=== PATIENT | female | born 1960 | race Caucasian/White ===

== ENCOUNTER 2017-12-22 12:45 | Observation (INO) | payer SELFPAY ==
--- NOTE | 2017-12-22 15:44 | RAD ---
PORTABLE CHEST 1 VIEW: DATE: 12/22/17. TIME: 3:34 p.m. HISTORY: Cough, chest wall pain. FINDINGS: The heart size is normal. The lungs are expanded without confluent areas of consolidation, pneumotho races, or pleural effusions. IMPRESSION: No radiographic evidence of acute cardiopulmonary process. POS: [facility]
[2017-12-22] MEDS ORDERED: Ketorolac Tromethamine 30 MG/ML VIAL ONE (16:05)
[2017-12-22] MEDS ORDERED: Nitroglycerin 2% Ointment 1 INCH/1 GM Packet ONE (16:05)
[2017-12-22] MEDS ORDERED: ISOVUE-370 76%-LOCM 1 ML ONE (16:39)
[2017-12-22 17:20] LABS: CKMB 0.3 ng/mL (0-6.6); Troponin I Less than 0.010 ng/mL (< 0.028)
[2017-12-22 17:28] LABS: #Lymphocytes 0.9 thou/uL (1.20-3.40); #Monocytes 0.9 thou/uL (0.11-0.59); #Neutrophils 4.6 thou/uL (1.40-6.50); %Basophils 0.6 % (0.0-1.0); %Eosinophils 0.3 % (0.0-10.0); %Lymphocytes 13.5 % (21.0-51.0); %Monocytes 13.7 % (0.0-10.0); %Neutrophils 71.9 % (42.0-75.0); Hemoglobin 13.3 g/dL (12.0-16.0); Mean Corpuscular HGB CONC 32.9 g/dL (32.0-36.0); Mean Corpuscular Volume 91.4 fl (81.0-99.0); Mean Platelet Volume 7.5 fL (7.4-10.4); Platelet Count 263 thou/uL (130-400); RBC Distribution Width 11.9 % (11.5-14.5); Red Blood Cell (RBC) Count 4.43 mill/uL (4.20-5.40); White Blood Cell (WBC) Count 6.4 thou/uL (4.8-10.8)
[2017-12-22 17:43] LABS: ALT (SGPT) 8 U/L (8-55); AST (SGOT) 16 U/L (5-34); Albumin 3.9 g/dL (3.5-5.0); Alkaline Phosphatase 72 U/L (40-150); Anion Gap 15 mmol/L (10-20); BUN (Urea Nitrogen) 16 mg/dL (9.8-20.1); Bilirubin, Total 0.7 mg/dL (0.2-1.2); Calc. Creatinine Clearance 0 mL/min (70-130); Calcium 9.1 mg/dL (7.8-10.44); Carbon Dioxide 23 mmol/L (22-29); Chloride 106 mmol/L (98-107); Estimated GFR-MDRD 73; Globulin 2.4 g/dL (2.4-3.5); Glucose 79 mg/dL (70-105); Potassium 3.9 mmol/L (3.5-5.1); Protein, Total 6.3 g/dL (6.0-8.3); Sodium 140 mmol/L (136-145)
--- NOTE | 2017-12-22 17:54 | CT ---
CT ANGIO OF CHEST AND ABDOMEN PERFORMED WITH INTRAVENOUS CONTRAST ENHANCEMENT WITH 3D RECONSTRUCTIONS 12/22/17 HISTORY: Cough, shortness of breath, pleurisy, back pain. Radiographic changes of COPD. There are prominent bullous lung changes in the right upper lobe. Some minimal parenchymal change in the left apex which is probably on the basis of scar. No definite infil trative process is noted. There is no significant mediastinal or hilar adenopathy. There is good pulm onary artery opacification, there is no CT evidence for pulmonary embolus. The thoracic aorta is norm al in caliber. There is no dissection. CT ANGIO OF ABDOMEN PERFORMED WITH CONTRAST ENHANCEMENT: There is an enhancing density seen within the right lobe of the liver. Enhancement is peripheral and slightly irregular. It is incompletely characterized on this exam but probably hemangioma. The spleen , pancreas and gallbladder regions all appear unremarkable. Right and left adrenal glands, and right and left kidneys are normal in size. The abdomen aorta is no rmal in caliber. There is no signs for dissection. There is occlusion of the celiac artery at its ivett gin but there is a patent superior mesenteric artery and I see no evidence for any type of bowel wall edema. IMPRESSION: 1. No CT evidence for pulmonary embolus. 2. No evidence of aortic aneurysm or dissection. 3. Probable hemangioma of the right lobe of the liver. This is incompletely characterized. A CT hemangioma protocol done on a nonemergent basis would be suggested. 4. 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 There is a patent superior mesenteric a rtery without evidence of any stenosis. POS: [facility]
[2017-12-22] MEDS ORDERED: Nitroglycerin 0.4 MG TAB (25 Tab Bottle) PO PRN (20:34)
[2017-12-22] MEDS ORDERED: Acetaminophen 650 MG Suppository PR PRN (20:34)
[2017-12-22] MEDS ORDERED: Ondansetron HCl/PF 4 MG/2 ML Vial IVP PRN (20:34)
--- NOTE | 2017-12-22 21:31 | HP ---
PRIMARY CARE PHYSICIAN: None. CHIEF COMPLAINT: Cough and chest pain. HISTORY OF PRESENT ILLNESS: Ms. Seth is a pleasant 57-year-old lady who was seen at [facility] on 12/22/2017. She reports that she started having cough yesterday. The cough is productive of minimal amount of sp utum. She reports feeling body aches and headaches since last night. She also reports pain in her m id back as well as over her chest. She reports that the chest pain is mild, but the back pain is mor e severe, 4/10 at its worst, on and off, no known aggravating or relieving factors. It is accompanie d by cough and generalized weakness. REVIEW OF SYSTEMS: The following complete review of systems was negative, unless otherwise mentioned in the HPI or below: Constitutional: Weight loss or gain, ability to conduct usual activities. Skin: Rash, itching. Eyes: Double vision, pain. ENT/Mouth: Nose bleeding, neck stiffness, pain, tenderness. Cardiovascular: Palpitations, dyspnea on exertion, orthopnea. Respiratory: Shortness of breath, wheezing, cough, hemoptysis, fever or night sweats. Gastrointestinal: Poor appetite, abdominal pain, heartburn, nausea, vomiting, constipation, or diarr hea. Genitourinary: Urgency, frequency, dysuria, nocturia. Musculoskeletal: Pain, swelling. Neurologic/Psychiatric: Anxiety, depression. Allergy/Immunologic: Skin rash, bleeding tendency. PAST MEDICAL HISTORY: None. PAST SURGICAL HISTORY: None. PSYCHIATRIC HISTORY: Anxiety, bipolar disorder, and depression. SOCIAL HISTORY: The patient reports recreational drug use including methamphetamines in the past. S he also reports tobacco use in the past. She denies any alcohol use. FAMILY HISTORY: No family history of premature coronary artery disease. ALLERGIES: CODEINE. CURRENT MEDICATIONS: None. PHYSICAL EXAMINATION: VITAL SIGNS: On examination, she has a blood pressure of 118/87, pulse of 88, respiratory rate of 22 , temperature 99.6 degrees Fahrenheit, and oxygen saturation of 93% on room air. EYES: No scleral icterus, no conjunctival pallor. ENT: Dry mucosal membranes, no oropharyngeal erythema or exudates. NECK: Supple, nontender, normal range of movement, trachea is midline. RESPIRATORY: Accessory muscles of breathing are mildly active. Chest wall movements are symmetric b ilaterally. LUNGS: Reveals occasional expiratory wheeze. ABDOMEN: Soft, nontender, bowel sounds are heard, no hepatomegaly, no splenomegaly. CARDIOVASCULAR: S1 and S2 are heard, regular. Peripheral pulses palpable. No carotid bruit, no per icardial rub. NEUROLOGIC: Cranial nerves II-XII are intact, deep tendon reflexes are 2+. SKIN: No rashes or subcutaneous nodules. MUSCULOSKELETAL: Power is 5/5 in all 4 extremities. Normal range of movement at all major extremity joints. LYMPHATIC: No cervical lymphadenopathy. PSYCHIATRIC: Normal mood, normal affect, patient is oriented to person, place, and time. LABORATORY DATA: Ms. Seth's labs and investigations were reviewed. I reviewed her electrocardiogr ams. At 1557 hours, she had sinus rhythm with T-wave inversions in the lateral leads. At 1802 hours , she has sinus rhythm. T-wave inversions have improved. Emergency room staff tells me that the fir st electrocardiogram was done when she was having chest pain and the second one was done after she re ceived Nitrospray and the chest pain had improved. I also reviewed her chest x-ray, which does not s how any pulmonary infiltrates. She also had CT dissection protocol, which did not reveal pulmonary e mbolism or aortic aneurysm or dissection. She has a probable hemangioma of the right lobe of the cindy er. Radiologist recommends evaluation on a nonemergent basis. Occlusion of the celiac artery was in cidentally noted. Laboratory investigation shows an unremarkable CBC, D-dimer less than 0.27, and a normal comprehensiv e metabolic profile. Troponin I is normal. ASSESSMENT AND PLAN: Ms. Seth is a pleasant 57-year-old lady who was seen at [facility] on 12/22/2017. Her problem list includes: 1. Upper respiratory tract infection: Suspected, based on clinical presentation. She has cough and flu-like symptoms. I should note that influenza screen is negative. For now, I will start her on T amiflu while awaiting the respiratory virus PCR panel. We will also start her on levofloxacin for po ssible bronchitis. We will start her on DuoNebs. 2. Chest pain: She has suspicious electrocardiographic changes. I will order stress test in the mo rning. We will recheck troponin. 3. Anxiety: The patient is not on any medications at this time. We will observe her overnight. 4. Depression: The patient denies any suicidal or homicidal ideation, we will observe. LEVEL OF RISK: High. LEVEL OF COMPLEXITY: High.
[2017-12-22] MEDS: Sodium Chloride 0.9% 1,000 ML IV SCH (21:50)
[2017-12-22 21:52] LABS: Troponin I Less than 0.010 ng/mL (< 0.028)
[2017-12-22] MEDS: Oseltamivir 75 MG CAP PO SCH (21:52)
[2017-12-22 21:53] VITALS: BMI 24.4
[2017-12-22] MEDS: ALPRAZolam 0.25 MG TAB PO PRN (23:57)
[2017-12-23 00:10] LABS: Troponin I Less than 0.010 ng/mL (< 0.028)
[2017-12-23] MEDS: Acetaminophen 325 MG TAB PO PRN ×3 (04:31→23:00)
[2017-12-23 05:52] LABS: Anion Gap 13 mmol/L (10-20); BUN (Urea Nitrogen) 14 mg/dL (9.8-20.1); Calc. Creatinine Clearance 88 mL/min (70-130); Calcium 8.6 mg/dL (7.8-10.44); Carbon Dioxide 21 mmol/L (22-29); Chloride 107 mmol/L (98-107); Estimated GFR-MDRD 79; Glucose 86 mg/dL (70-105); Potassium 3.7 mmol/L (3.5-5.1); Sodium 137 mmol/L (136-145)
[2017-12-23 06:10] LABS: Bilirubin Negative (Negative); Blood, Urine Trace (Negative); Clarity CLEAR (Clear); Glucose, Urine (Dipstick) Negative (Negative); Leukocyte Small (Negative); Nitrite Negative (Negative); Protein, Urine (Dipstick) Negative (Neg-Trace); Urobilinogen 0.2 mg/dL (0.2-1.0)
[2017-12-23 06:13] LABS: Bacteria/HPF Rare-Few HPF (None Seen); Hyaline Casts/LPF 0-3 HYALINE CAST LPF (0-3 Hyaline); Pathc Cast-AUWi Flag 0.13 (0-2.49); RBC/HPF 0-3 HPF (0-3); Squamous Epithelial 0-3 HPF (0-3); WBC/HPF 21-50 HPF (0-3)
[2017-12-23 06:18] LABS: #Basophils 0.1 thou/uL (0.0-0.2); #Lymphocytes 0.6 thou/uL (1.20-3.40); #Monocytes 0.7 thou/uL (0.11-0.59); #Neutrophils 3.8 thou/uL (1.40-6.50); %Eosinophils 0.3 % (0.0-10.0); %Lymphocytes 11.8 % (21.0-51.0); %Monocytes 14.2 % (0.0-10.0); %Neutrophils 72.8 % (42.0-75.0); Hemoglobin 13.1 g/dL (12.0-16.0); Mean Corpuscular HGB CONC 33.2 g/dL (32.0-36.0); Mean Corpuscular Hemoglobin 30.2 pg (27.0-31.0); Mean Corpuscular Volume 91.1 fl (81.0-99.0); Mean Platelet Volume 7.9 fL (7.4-10.4); Platelet Count 238 thou/uL (130-400); RBC Distribution Width 11.9 % (11.5-14.5); Red Blood Cell (RBC) Count 4.34 mill/uL (4.20-5.40); White Blood Cell (WBC) Count 5.2 thou/uL (4.8-10.8)
[2017-12-23 06:27] LABS: Amphetamine Not Detected (NotDetected); Barbiturates Screen Not Detected (NotDetected); Benzodiazepine Screen Not Detected (NotDetected); Cocaine Metabolite Screen Not Detected (NotDetected); Medtox Control Line Valid? VALID (VALID); Medtox Reader # READER 1; Methadone Not Detected (NotDetected); Methamphetamine Not Detected (NotDetected); Opiate Screen Not Detected (NotDetected); Oxycodone Screen Not Detected (NotDetected); Phencyclidine (PCP) Not Detected (NotDetected); THC/Cannabinoid Screen Not Detected (NotDetected); Tricyclic Screen Not Detected (NotDetected)
[2017-12-23] MEDS: Sodium Chloride 0.9% 1,000 ML IV SCH ×2 (09:25→19:07)
[2017-12-23] MEDS: Enoxaparin Sodium 40 MG/0.4 ML SYRINGE SC SCH (11:35)
[2017-12-23] MEDS: Oseltamivir 75 MG CAP PO SCH ×2 (11:35→19:07)
--- NOTE | 2017-12-23 14:58 | PDOC.PN ---
- Subjective Encounter Start Date: 12/23/17 Encounter Start Time: 07:20 Pt seen for followup re: chest pain. reports chest pain is better. Cough+, minimal sputum. Feels warm. - Objective Vital Signs & Weight: Vital Signs (12 hours) Temp Pulse Resp BP BP Pulse Ox 12/23/17 11:40 100.5 F H 80 20 131/83 96 12/23/17 08:00 98.9 F 88 16 120/77 95 12/23/17 07:19 96 12/23/17 07:17 93 20 96 12/23/17 05:50 100.5 F H 12/23/17 04:30 101.1 F H 95 24 H 111/69 95 Weight Weight 151 lb 6 oz I&O: 12/22/17 12/23/17 12/24/17 06:59 06:59 06:59 Intake Total 240 949 Output Total 525 Balance -285 949 Result Diagrams: 12/23/17 04:20 12/23/17 04:20 Phys Exam - Physical Examination Constitutional: NAD HEENT: PERRLA, moist MMs, sclera anicteric, oral pharynx no lesions Neck: no nodes, no JVD, supple, full ROM Respiratory: no wheezing, no rales, no rhonchi Cardiovascular: RRR, no rub Gastrointestinal: soft, non-tender, no distention, positive bowel sounds Neurological: moves all 4 limbs Psychiatric: normal affect Skin: no rash Dx/Plan (1) Chest pain Code(s): R07.9 - CHEST PAIN, UNSPECIFIED Status: Acute (2) Influenza B Code(s): J10.1 - FLU DUE TO OTH IDENT INFLUENZA VIRUS W OTH RESP MANIFEST Status: Acute (3) Anxiety Code(s): F41.9 - ANXIETY DISORDER, UNSPECIFIED Status: Chronic (4) Depression Code(s): F32.9 - MAJOR DEPRESSIVE DISORDER, SINGLE EPISODE, UNSPECIFIED Status : Chronic - Plan * . Continue Tamiflu. Pt awaiting stress test. Review of Systems - Review of Systems Constitutional: fever, sweats, weakness, malaise. negative: chills Respiratory: Cough, Sputum, Wheezing. negative: Dry, Shortness of Breath, Hemoptysis, SOB with Excertion, Pleuritic Pain Cardiovascular: chest pain. negative: palpitations, orthopnea, paroxysmal nocturnal dyspnea, edema, light headedness Gastrointestinal: negative: Nausea, Vomiting, Abdominal Pain, Diarrhea, Constipation, Melena, Hematochezia Genitourinary: negative: Dysuria, Frequency, Incontinence, Hematuria, Retention - Medications/Allergies Allergies/Adverse Reactions: Allergies Allergy/AdvReac Type Severity Reaction Status Date / Time codeine Allergy Verified 12/22/17 22:52 Medications: Current Medications Acetaminophen (Tylenol) 650 mg PO Q4H PRN PRN Reason: Headache/Fever or Pain Last Admin: 12/23/17 04:31 Dose: 650 mg Acetaminophen (Tylenol) 650 mg [place] Q4H PRN PRN Reason: Headache/Fever or Pain Albuterol/Ipratropium (Duoneb) 3 ml NEB [id number] PRN PRN Reason: SOB &/or Wheezing Albuterol/Ipratropium (Duoneb) 3 ml NEB [id number] DENIA Last Admin: 12/23/17 14:13 Dose: Not Given Alprazolam (Xanax) 0.25 mg PO BID PRN PRN Reason: Anxiety Last Admin: 12/22/17 23:57 Dose: 0.25 mg Enoxaparin Sodium (Lovenox) 40 mg SC 0900 [facility] Last Admin: 12/23/17 11:35 Dose: 40 mg Levofloxacin 500 mg/ Device 100 mls @ 100 mls/hr IVPB Q24HR [facility] Last Admin: 12/22/17 22:00 Dose: 100 mls Sodium Chloride (Normal Saline 0.9%) 1,000 mls @ 100 mls/hr IV .Q10H [facility] Last Admin: 12/23/17 09:25 Dose: 1,000 mls Nitroglycerin (Nitrostat) 0.4 mg PO Q5MIN PRN PRN Reason: Chest Pain Ondansetron HCl (Zofran) 4 mg IVP Q6H PRN PRN Reason: Nausea/Vomiting Oseltamivir Phosphate (Tamiflu) 75 mg PO BID [facility] Stop: 12/27/17 09:01 Last Admin: 12/23/17 11:35 Dose: 75 mg
[2017-12-23] MEDS: ALPRAZolam 0.25 MG TAB PO PRN (19:07)
[2017-12-24 05:10] LABS: Anion Gap 12 mmol/L (10-20); BUN (Urea Nitrogen) 8 mg/dL (9.8-20.1); Calc. Creatinine Clearance 89 mL/min (70-130); Calcium 8.5 mg/dL (7.8-10.44); Carbon Dioxide 22 mmol/L (22-29); Chloride 109 mmol/L (98-107); Estimated GFR-MDRD 80; Glucose 85 mg/dL (70-105); Potassium 3.8 mmol/L (3.5-5.1); Sodium 139 mmol/L (136-145)
[2017-12-24] MEDS: Sodium Chloride 0.9% 1,000 ML IV SCH ×2 (05:50→16:22)
[2017-12-24 06:02] LABS: Band 8 % (5-11); Hemoglobin 13.5 g/dL (12.0-16.0); Lymphocytes 22 % (21-51); MDiff Complete? YES; Mean Corpuscular HGB CONC 33.7 g/dL (32.0-36.0); Mean Corpuscular Volume 91.9 fl (81.0-99.0); Mean Platelet Volume 7.7 fL (7.4-10.4); Monocytes 9 % (0-10); Neutrophil 59 % (42-75); PLT Morphology Comment Appears Adequate; Platelet Count 235 thou/uL (130-400); RBC Distribution Width 11.8 % (11.5-14.5); RBC Morphology Normal; Reactive Lymphocytes 2 % (0-10); Red Blood Cell (RBC) Count 4.35 mill/uL (4.20-5.40); White Blood Cell (WBC) Count 3.8 thou/uL (4.8-10.8)
[2017-12-24] MEDS: Oseltamivir 75 MG CAP PO SCH ×2 (09:29→20:44)
[2017-12-24] MEDS: ALPRAZolam 0.25 MG TAB PO PRN ×2 (09:32→23:01)
[2017-12-24] MEDS: Enoxaparin Sodium 40 MG/0.4 ML SYRINGE SC SCH (09:32)
[2017-12-24] MEDS: Acetaminophen 325 MG TAB PO PRN ×2 (10:13→20:44)
--- NOTE | 2017-12-24 16:13 | PRG ---
DATE OF SERVICE: 12/24/2017 SUBJECTIVE: The patient is seen and examined at bedside. She complains about muscle aches all over her body. She has low-grade fever. She has some mildly productive cough. Her appetite is poor. Jo-Ann cloud does not have any chest pain anymore, but she still has some back pain. OBJECTIVE: VITAL SIGNS: Blood pressure is 121/76, pulse is 82, respiratory rate is 16, O2 saturation is 92% on room air. Her maximal temperature was 100.7 in the last 24 hours. HEENT: Head is atraumatic, normocephalic. She looks quite sick. Her eyes are PERRLA. Oral mucosa moist. NECK: Supple, no lymphadenopathy. LUNGS: Clear. HEART: S1, S2 normal. No S3, no S4, not any murmur. ABDOMEN: Soft, nontender. EXTREMITIES: No clubbing, cyanosis, or edema. NEUROLOGIC: She is alert and oriented x4. There are no any motor or sensory deficits. Cranial nerv es are intact. LABORATORY DATA: Showed white count of 3.8, normal hemoglobin, normal hematocrit, and normal platele t count. Sodium of 139, potassium 3.8, chloride 109, CO2 of 22, BUN 8, creatinine 0.74. Microbiolog y showing negative urine culture, positive respiratory virus panel for influenza B and one out of two cultures of her blood showed bacillus species, not anthracis and the other blood culture is negative so far. IMPRESSION: 1. Chest pain, rule out coronary syndrome, acute. Patient does not have much of chest discomfort an ymore. She will have stress test tomorrow since the nuclear medicine department is overwhelmed with number of cases over the weekend and she is not feeling that well to have the stress test done. 2. Influenza B infection, on Tamiflu. 3. Anxiety, chronic. 4. Depression, chronic. PLAN: Continue her Tamiflu. Awaiting stress test tomorrow. No treadmill stress test since she feel s quite sick and continue a current supportive care.
[2017-12-25] MEDS: Sodium Chloride 0.9% 1,000 ML IV SCH (01:56)
[2017-12-25 06:33] VITALS: BP 111/78; TEMP 99.1
[2017-12-25 06:46] LABS: Anion Gap 10 mmol/L (10-20); BUN (Urea Nitrogen) 7 mg/dL (9.8-20.1); Calc. Creatinine Clearance 95 mL/min (70-130); Calcium 8.4 mg/dL (7.8-10.44); Carbon Dioxide 24 mmol/L (22-29); Chloride 109 mmol/L (98-107); Estimated GFR-MDRD 87; Glucose 85 mg/dL (70-105); Potassium 3.8 mmol/L (3.5-5.1); Sodium 139 mmol/L (136-145)
[2017-12-25 07:29] LABS: Band 10 % (5-11); Hemoglobin 13.7 g/dL (12.0-16.0); Lymphocytes 40 % (21-51); MDiff Complete? YES; Mean Corpuscular HGB CONC 33.1 g/dL (32.0-36.0); Mean Corpuscular Hemoglobin 30.1 pg (27.0-31.0); Mean Corpuscular Volume 91.1 fl (81.0-99.0); Mean Platelet Volume 7.6 fL (7.4-10.4); Monocytes 3 % (0-10); Neutrophil 27 % (42-75); Platelet Count 227 thou/uL (130-400); RBC Distribution Width 11.8 % (11.5-14.5); RBC Morphology Normal; Reactive Lymphocytes 19 % (0-10); Red Blood Cell (RBC) Count 4.54 mill/uL (4.20-5.40); White Blood Cell (WBC) Count 3.1 thou/uL (4.8-10.8)
[2017-12-25] MEDS: Oseltamivir 75 MG CAP PO SCH (08:52)
[2017-12-25] MEDS: Acetaminophen 325 MG TAB PO PRN (08:55)
[2017-12-25] MEDS: Enoxaparin Sodium 40 MG/0.4 ML SYRINGE SC SCH (08:55)
[2017-12-25] MEDS ORDERED: Aspirin 81 mg Enteric Coated Tablet PO SCH (09:00)
[2017-12-25 09:17] LABS: Cardiac Risk 3.9 (Less than 4.5)
--- NOTE | 2017-12-25 15:53 | DIS ---
DATE OF ADMISSION: 12/22/2017 DATE OF DISCHARGE: 12/25/2017 CONDITION AT THE TIME OF DISCHARGE: Stable and improved. DISCHARGE DIAGNOSES: 1. Acute viral bronchitis with influenza. 2. Nonspecific noncardiac chest pain. 3. Chronic anxiety and depression. DISCHARGE MEDICATIONS: As follows: Tamiflu 75 mg p.o. b.i.d., 5 more doses to finish the course of 10 doses; levofloxacin 500 mg p.o. daily for 5 days; albuterol inhaler every 4 hours as needed and Ty lenol extra strength as needed every 6 hours orally. DISCHARGE DISPOSITION: Back to [facility]. PROCEDURES DONE IN THE HOSPITAL: Include CT scan with aortic dissection protocol, which is negative for the same as well as negative for any pulmonary embolism. She has a small hemangioma of the right lobe of the liver and celiac artery occlusion noted without any stenosis of the superior mesenteric artery. HISTORY OF PRESENTING ILLNESS: Ms. Margot Seth is a 57-year-old female without any significant past medical history, who was brought [facility] for complaints of cough and chest pain, body aches and headac hes and generalized weakness and malaise. She was admitted for chest pain workup as well as treatmen t and workup for upper respiratory tract infection. There were some concerns for T-wave inversions i n the lateral lead EKG, and for this reason, she was scheduled to undergo a stress test. CT scan wit h dissection protocol was done, which was negative for the same. She also did not have any pulmonary embolism. She underwent a respiratory viral panel and was started empirically on levofloxacin for b ronchitis. Please see admission history and physical for further details. Her respiratory viral panel came back positive for influenza type B. She was started on Tamiflu. Th e rest of her blood cultures and urine cultures remained negative. One out of two blood cultures wer e positive for bacillus not anthracis, which was thought to be a contamination. HOSPITAL COURSE: The patient was supposed to undergo nuclear medicine stress test, but for the 2 day s, she refused it because she was feeling so poorly. Serial cardiac enzymes were trended, which were unremarkable. Because of the presence of positive influenza, it was thought that she is not a good candidate for stress test at this time and most likely her symptoms are not related to a cardiac even t. She remained hemodynamically stable and was prescribed aspirin while in the hospital. At this ti me, she has been cleared from any cardiac event. She will continue the empiric antibiotic and contin ue the Tamiflu and is discharged back to [facility]. Discharge plan was discussed with the patient who v erbalized understanding. She was seen and examined prior to discharge. PHYSICAL EXAMINATION: VITAL SIGNS: Temperature 99.1, pulse of 77, respirations 16, saturating 94% on room air and blood pr essure 111/78. GENERAL: No acute distress. Awake, alert and oriented x3. CHEST: Clear to auscultation without any wheezing, rales or rhonchi. HEART: Rate and rhythm is regular. ABDOMEN: Soft, nontender and nondistended. LABORATORY DATA: Troponin less than 0.010 x3 with normal CK-MB of 0.3. Lipid panel is checked, whic h is within normal limits. FOLLOWUP: She was instructed to follow up with the physician at [facility] once she is cleared to enriqueta hudson from the [facility]. She verbalized understanding.
--- NOTE | 2018-01-20 15:12 | EKG ---
Test Reason : Blood Pressure : / mmHG Vent. Rate : 089 BPM Atrial Rate : 089 BPM P-R Int : 094 ms QRS Dur : 072 ms QT Int : 338 ms P-R-T Axes : 000 141 107 degrees QTc Int : 411 ms Suspect arm lead reversal, interpretation assumes no reversal Sinus rhythm with short GA with occasional Premature ventricular complexes Lateral infarct , age undetermined Abnormal ECG Confirmed by ALYSSA MCHUGH ([id number]), clinical editor VINOD LE ([id number] on 01/20/2018 3:12:31 PM Referred By: Confirmed By:ALYSSA MCHUGH
--- NOTE | 2018-01-20 15:17 | EKG ---
Test Reason : CHESTPAIN Blood Pressure : / mmHG Vent. Rate : 100 BPM Atrial Rate : 100 BPM P-R Int : 110 ms QRS Dur : 070 ms QT Int : 308 ms P-R-T Axes : 074 073 105 degrees QTc Int : 397 ms Sinus rhythm with short MS ST depression II, III, aVF, V4-V6 Abnormal ECG Confirmed by ALYSSA MCHUGH ([id number]), image editor VINOD LE ([id number] on 01/20/2018 3:16:58 PM Referred By: Confirmed By:ALYSSA MCHUGH
== END 2017-12-25 12:25 | disposition home or self-care (01) ==
LOC: ERS 12:45 → 2SW 21:41
PROVIDERS: ADMIT Internal Medicine; ATTEND Internal Medicine
DX: J10.1 Influenza due to other identified influenza virus with other respiratory manifestations (principal); R07.89 Other chest pain; F41.8 Other specified anxiety disorders; F31.9 Bipolar disorder, unspecified; Z88.5 Allergy status to narcotic agent
CPT/HCPCS: 36415; 71045; 71275; 80048; 80053; 80061; 80306; 81003; 81015; 82553; 84484; 85025; 85379; 87040; 87086; 87633; 87804; 93005; 94640; 94760; 96361; 96365; 96372; 96374; 96375; G0378; J1650; J1885; J1956; J2405; J7620